=== PATIENT | male | born 1980 | race Caucasian/White ===

== ENCOUNTER 2016-07-14 22:42 | Emergency (ER) | payer SELFPAY ==
[~2016-07-14] VITALS: Ht 172.7 cm; Wt 81.6 kg
[2016-07-14 23:41] VITALS: BP 107/60
== END 2016-07-14 23:41 | disposition home or self-care (01) ==
LOC: ER 22:47
DX: S00.411A Abrasion of right ear, initial encounter (principal); F17.200 Nicotine dependence, unspecified, uncomplicated; H71.92 Unspecified cholesteatoma, left ear; Z98.890 Other specified postprocedural states; X58.XXXA Exposure to other specified factors, initial encounter; Y93.89 Activity, other specified; Y92.89 Other specified places as the place of occurrence of the external cause; Y99.8 Other external cause status
CPT/HCPCS: 99281; A4606; Z7610; Z7502